=== PATIENT | male | born 1980 | race Caucasian/White ===

== ENCOUNTER 2016-08-31 15:43 | Emergency (ER) | payer OTHER | END 2016-08-31 16:36 | disposition home or self-care (01) | LOC: ER 15:43 | PROC: 0X3 Anatomical Regions, Upper Extremities, Control (ICD-10-PCS; principal; 2016-08-31) | DX: L76.22 Postprocedural hemorrhage of skin and subcutaneous tissue following other procedure (principal); R58 Hemorrhage, not elsewhere classified; I10 Essential (primary) hypertension; I25.10 Atherosclerotic heart disease of native coronary artery without angina pectoris; E11.9 Type 2 diabetes mellitus without complications; Z90.49 Acquired absence of other specified parts of digestive tract; Z98.890 Other specified postprocedural states; Z79.899 Other long term (current) drug therapy; Z79.4 Long term (current) use of insulin | CPT/HCPCS: 35860; 36415; 99070; 99283 ==